=== PATIENT | female | born 1955 | race Caucasian/White ===

== ENCOUNTER 2017-12-24 11:16 | Emergency (ER) | payer SELFPAY ==
[~2017-12-24] VITALS: Ht 154.9 cm; Wt 57.8 kg
[2017-12-24 11:21] VITALS: Ht 154.9 cm; Wt 57.8 kg
[2017-12-24 12:50] VITALS: BP 127/68
== END 2017-12-24 12:50 | disposition home or self-care (01) ==
LOC: ED 11:16
DX: J06.9 Acute upper respiratory infection, unspecified (principal)

== ENCOUNTER 2018-01-02 12:25 | Inpatient (IN) | payer OTHER ==
[~2018-01-02] VITALS: Ht 157.5 cm; Wt 59.5 kg
[2018-01-02 12:39] VITALS: Ht 157.5 cm; Wt 59.5 kg
[2018-01-02 13:23] LABS: UA SPECIFIC GRAVITY >=1.030 (1.005-1.035); microscopic required? YES; urine erythrocyte NEGATIVE (NEGATIVE)
[2018-01-02 13:25] LABS: BASOPHIL % 0.3 % (0-2); PLATELET COUNT 338 x10^3mcL (130-400); RED CELL DISTRIBUTION WIDTH 12.5 % (11.5-14.5)
[2018-01-02 13:36] LABS: POTASSIUM SERUM 3.3 mmol/L (3.5-5.1); SODIUM SERUM 141 mmol/L (136-145)
[2018-01-02 13:44] LABS: CALCIUM 8.9 mg/dL (8.5-10.1); CARBON DIOXIDE 25.9 mmol/L (21-32); CHLORIDE SERUM 104 mmol/L (98-107); CREATININE SERUM 0.8 mg/dL (0.6-1.0); GFR1 > 60 mL/min; GLUCOSE SERUM 134 mg/dL (74-106)
[2018-01-02 13:48] LABS: ALBUMIN 3.6 g/dL (3.4-5.0); ALKALINE PHOSPHATASE 105 U/L (46-116); ALT/SGPT 51 U/L (14-59); AST/SGOT 35 U/L (15-37); BILIRUBIN TOTAL 0.5 mg/dL (0.20-1.00); LIPASE 426 IU/L (73-393); TOTAL PROTEIN, SERUM 7.5 g/dL (6.4-8.2)
[2018-01-02 13:49] LABS: CHOLESTEROL 250 mg/dL (<200); CHOLESTEROL/HDL RATIO 7.8; HDL CHOLESTEROL 32 mg/dL (40-60); TRIGLYCERIDES 574 mg/dL (<150)
[2018-01-02 13:50] LABS: FREE T4 1.2 ng/dL (0.76-1.46); FREE THYROXINE INDEX 3.3 ug/dL (1.4-4.5); T4(THYROXINE) 10.8 ug/dL (4.7-13.3)
[2018-01-02 14:38] LABS: T3 TOTAL 0.93 ng/mL
[2018-01-02] MEDS ORDERED: IBUPROFEN600 MG (14:52)
[2018-01-02] MEDS ORDERED: LEVAQUIN750 MG (14:52)
[2018-01-02] MEDS ORDERED: PROTONIX20 MG (14:52)
[2018-01-02 15:44] VITALS: BP 138/64
[2018-01-02 16:47] LABS: MAGNESIUM 2.4 mg/dL (1.8-2.4); PHOSPHOROUS 2.7 mg/dL (2.5-4.9)
[2018-01-02 17:39] VITALS: BP 123/61
[2018-01-02 21:17] VITALS: BP 142/64
[2018-01-02 22:36] LABS: AMPHETAMINE QUAL UR NONE DETECTED (NEG <=1000)
[2018-01-03 05:33] VITALS: BP 121/67
[2018-01-03 06:25] LABS: BASOPHIL % 0.7 % (0-2); PLATELET COUNT 306 x10^3mcL (130-400); RED CELL DISTRIBUTION WIDTH 12.9 % (11.5-14.5)
[2018-01-03 06:44] LABS: CALCIUM 8.2 mg/dL (8.5-10.1); CARBON DIOXIDE 25.1 mmol/L (21-32); CHLORIDE SERUM 106 mmol/L (98-107); CREATININE SERUM 0.7 mg/dL (0.6-1.0); GFR1 > 60 mL/min; GLUCOSE SERUM 99 mg/dL (74-106); MAGNESIUM 2.3 mg/dL (1.8-2.4); PHOSPHOROUS 3.2 mg/dL (2.5-4.9); SODIUM SERUM 141 mmol/L (136-145)
[2018-01-03 10:21] VITALS: BP 105/59
[2018-01-03 13:30] VITALS: BP 127/63
[2018-01-03] MEDS ORDERED: MUCINEX600 MG PO (15:19)
[2018-01-03] MEDS ORDERED: LOP600 PO (15:19)
[2018-01-03] MEDS ORDERED: ECO81 PO (15:19)
[2018-01-03 15:38] VITALS: BP 127/63
== END 2018-01-03 16:45 | disposition home or self-care (01) | DRG 282 ==
LOC: ED 12:25 → DU 14:31
PROVIDERS: Family Medicine; Specialist
DX: K85.90 Acute pancreatitis without necrosis or infection, unspecified (principal); N17.0 Acute kidney failure with tubular necrosis; K76.0 Fatty (change of) liver, not elsewhere classified; E78.2 Mixed hyperlipidemia; E87.6 Hypokalemia; R73.03 Prediabetes; K86.1 Other chronic pancreatitis; Z53.29 Procedure and treatment not carried out because of patient's decision for other reasons; Z79.899 Other long term (current) drug therapy; J40 Bronchitis, not specified as acute or chronic
CPT/HCPCS: 83880; 84439; 87804; J1885; J2405; J3010; J7030; Q0092